=== PATIENT | female | born 1950 | race Caucasian/White ===

== ENCOUNTER 2020-07-19 10:38 | Emergency (ER) | payer MEDICARE, SELFPAY ==
--- NOTE | ~2020-07-19 | XR_ITS ---
EXAMINATION: XR chest 2V DATE: 07/19/2020 10:59 INDICATION: Cough. Shortness of breath. TECHNIQUE: Frontal and lateral views of the chest were obtained. COMPARISON: None. FINDINGS: There are mild airspace opacities in the mid and lower lung zones. No pleural effusion or p neumothorax. The heart size is normal. There are bilateral breast implants. IMPRESSION: 1. Mild airspace opacities in the mid and lower lung zones, consistent with atelectasis or less likel y pneumonia. Reviewed, dictated and finalized at location A. E MAN IMPRESSION: 1. Mild airspace opacities in the mid and lower lung zones, consistent with ate lectasis or less likely pneumonia.
[2020-07-19 10:46] VITALS: BP 154/91; PULSE 88; RESP 20; TEMP 36.6; O2SAT 95
--- NOTE | 2020-07-19 10:56 | ED.URI ---
HPI - URI/Sore Throat General Chief Complaint: Upper Respiratory Infection Stated Complaint: cough/sob Time Seen by Provider: 07/19/20 11:01 Source: patient and RN notes reviewed Mode of arrival: ambulatory Limitations: no limitations History of Present Illness HPI Narrative: 70 year old female who presents to [facility] with complaints of shortness of breath and cough for the past 3 weeks with no improvement after taking 2 rounds of oral antibiotics. Patient states that she feels short of breath all the time and especially with exertion. Patient also states that she has had nasal congestion and drainage but denies any know fevers chills or sweats. Patient states no change in taste or smell, denies any GI symptoms, or acute fatigue, states rare outing masked to grocery store every 2 weeks with no known exposure to COVID or any family member ill. MD elicited complaint: cough, rhinorrhea, nasal congestion and other (nasal drainage and shortness of breath) Onset (ago): week(s) (3) Consistency: constant Severity: moderate Description of mucous: clear Able to tolerate fluids by mouth: Yes Exacerbating factors: exertion Relieving factors: nothing Associated symptoms: rhinorrhea, cough and shortness of breath Treatments prior to arrival: antibiotics and other (anti) Related Data Home Medications Medication Instructions Recorded Confirmed citalopram mg 07/19/20 Allergies Allergy/AdvReac Type Severity Reaction Status Date / Time Penicillins Allergy Unknown Verified 11/10/08 15:36 Review of Systems Review of Systems: Narrative: CONSTITUTIONAL: Denies fever, chills, or sweats. EYES: Denies visual changes, redness, or discharge. ENT: positive rhinorrhea, congestion,no sore throat, or otalgia. CARDIOVASCULAR: Denies chest pain, palpitations, or edema. RESPIRATORY: Positive cough or dyspnea. GASTROINTESTINAL: Denies abdominal pain, nausea, vomiting, or diarrhea. GENITOURINARY: Denies dysuria or hematuria. SKIN: Denies rash or itching. MUSCULOSKELETAL: Denies back pain, joint pain, or myalgia. NEUROLOGIC: Denies headache, numbness, or weakness. PSYCHIATRIC: Positive history of anxiety or depression. All systems reviewed & are unremarkable except as noted in HPI and below PMFSH Past Medical History Medical History (Updated 07/19/20 @ 16:49 by Mayte Perez NP) Depression Diverticulitis Surgical History Surgical History (Updated 07/19/20 @ 16:53 by Mayte Perez NP) H/O total hysterectomy History of colon resection History of tonsillectomy Hx of breast implants, bilateral Social History Social History (Updated 07/19/20 @ 14:16 by Mayte Perez NP) Smoking status: Never smoker Alcohol intake: never Substance use: never Living arrangements: with family Gender identity (if verbalized by the patient): Female Comments At time of signature, agree with nursing past medical, surgical, social history. There is no relevant family history pertinent to the presenting complaint Exam Narrative: Exam Narrative: GENERAL: Well-appearing, well-nourished, and in no acute distress. HEAD: Normocephalic, atraumatic. EYES: PERRLA and EOMI. ENT: Nares red with clear rhinorrhea no epistaxis. Mucous membranes moist.TM's normal with good light reflex, throat pink with no swelling or exudates no tonsil enlargement NECK: Supple.no lymphadenopathy CHEST: Scattered wheezing throughout lung fuller on auscultation. No acute respiratory distress.SAO2 95% on room air admits to dyspnea with minimal exertion. HEART: Regular rate and rhythm. No murmur heard. Normal peripheral pulses. ABDOMEN: Soft, nontender, nondistended, normal active bowel sounds. EXTREMITIES: Normal range of motion. No edema. SKIN: Warm, dry, no rash. NEURO: No focal deficits. Alert and oriented x3. Course Vital Signs Vital signs: Vital Signs Temperature 36.6 C 07/19/20 10:46 Pulse Rate 88 07/19/20 10:46 Respiratory Rate 20 07/19/20 10:46
== END 2020-07-19 11:35 | disposition home or self-care (01) ==
PROVIDERS: Emergency Provider Registered Nurse; PCP Family Medicine
DX: J40 Bronchitis, not specified as acute or chronic (principal); F32.9 Major depressive disorder, single episode, unspecified
CPT/HCPCS: 71046; 99213; C9803; G0463; U0003

== ENCOUNTER 2020-07-19 11:36 | Outpatient (NON) | payer MEDICARE, SELFPAY ==
[2020-07-19 23:30] LABS: SARS-CoV-2 RNA PCR Negative
== END 2020-07-19 11:37 ==
PROVIDERS: PCP Family Medicine; Visit Provider Registered Nurse
DX: R05 Cough (principal); J40 Bronchitis, not specified as acute or chronic; Z20.828 Contact with and (suspected) exposure to other viral communicable diseases
CPT/HCPCS: 87635; C9803; U0003

== ENCOUNTER 2020-09-05 12:06 | Observation (INO) | payer MEDICARE, SELFPAY ==
[2020-09-05] VITALS (24 sets, daily range): BP systolic 131–164; BP diastolic 67–119; PULSE 98–121; RESP 16–36; TEMP 36–36.4; O2SAT 93–100
--- NOTE | ~2020-09-05 | XR_ITS ---
XR chest 1V portable 09/05/2020 13:19 Indication: Shortness of breath Procedure: AP portable chest Comparison: 07/19/2020 Findings: Borderline heart size. Mild pulmonary vascular congestion. No focal air space disease, pulm onary edema, pleural effusion or suspected pneumothorax. Impression: 1: No acute cardiopulmonary disease. Reviewed, dictated and finalized at location B. [employer] Impression: 1: No acute cardiopulmonary disease.
--- NOTE | ~2020-09-05 | CT_ITS ---
EXAMINATION: CT diagnostic chest wo con DATE: 09/06/2020 13:23 INDICATION: Shortness of breath TECHNIQUE: Computed tomography (CT) of the chest was performed without intravenous contrast. The dose -length product (DLP) was 177.64 mGy-cm. Automated exposure control and iterative reconstruction tech nique were employed. COMPARISON: None FINDINGS: There is mild emphysema. There is atelectasis of the lingula and right middle lobe. There i s no pleural effusion or pneumothorax. No focal airspace opacities are identified. No pathologically enlarged thoracic lymph nodes are identified. The heart size is normal. Bilateral breast implants are noted. There is an 11 mm cyst of the liver dome. Mild thoracic spine is noted. IMPRESSION: 1. Mild emphysema. Reviewed, dictated and finalized at location A. [employer] IMPRESSION: 1. Mild emphysema.
--- NOTE | 2020-09-05 12:32 | ECG_ITS ---
Measurements Intervals Benjamin Rate: 107 P: 104 WY: 185 QRS: 2 QRSD: 85 T: 79 QT: 348 QTc: 465 Interpretive Statements SINUS TACHYCARDIA LEFT VENTRICULAR HYPERTROPHY AND ST-T CHANGE ANTEROSEPTAL INFARCT, AGE INDETERMINATE BASELINE ARTIFACT- II, III, AVL, AVF, V5 ABNORMAL ECG Electronically Signed On 09-05-2020 14:10:09 ICU RN by Devan Dumont D.O.
--- NOTE | 2020-09-05 12:34 | ED.URI ---
HPI - URI/Sore Throat General Chief Complaint: Upper Respiratory Infection Stated Complaint: sob, cough Time Seen by Provider: 09/05/20 12:22 Source: patient Mode of arrival: ambulatory Limitations: no limitations History of Present Illness HPI Narrative: This patient is a 70 year year old female who presents for evaluation of worsening shortness of breath. She reports for the past 2 months she has been dealing with a cough and shortness of breath. She has been diagnosed with acute bronchitis, so she has been treated with multiple rounds of steroids and antibiotics. She completed her last course of steroids 2 weeks ago. Since the completion of medications , her shortness of breath has worsened. She unable to walk around her house without having to stop. She denies chest pain or fever. MD elicited complaint: cough Related Data Home Medications Medication Instructions Recorded Confirmed citalopram 40 mg PO ONCE 07/19/20 09/05/20 Allergies Allergy/AdvReac Type Severity Reaction Status Date / Time Penicillins Allergy Unknown Unknown Verified 09/05/20 12:16 Review of Systems Review of Systems: All systems reviewed & are unremarkable except as noted in HPI and below Constitutional: Constitutional: Denies chills, Reports fatigue and Denies fever(s) Cardiovascular: Cardiovascular: Denies chest pain and Reports rapid heart rate Respiratory: Respiratory: Reports cough, Reports dyspnea and Reports wheezing Gastrointestinal: Gastrointestinal: Denies abdominal pain, Denies nausea and Denies vomiting PMFSH Past Medical History Medical History (Updated 09/05/20 @ 20:47 by Allegra Anand MD) Depression Diverticulitis Surgical History Surgical History (Updated 07/19/20 @ 16:53 by Mayte Perez NP) H/O total hysterectomy History of colon resection History of tonsillectomy Hx of breast implants, bilateral Social History Social History (Updated 07/19/20 @ 14:16 by Mayte Perez NP) Smoking status: Never smoker Alcohol intake: never Substance use: never Substance use type: does not use Gender identity (if verbalized by the patient): Female Sexual Orientation (if Verbalized by the Patient): Straight or Heterosexual Spiritual care concerns: No Exam Const: General: alert Orientation/consciousness: patient oriented x3 HENMT: Head: normocephalic and atraumatic Face and sinus: face symmetric Mouth: Yes Normal oral and palatal mucosa present, Yes lip normal, Yes oropharynx normal and Yes moist mucous membranes Throat: posterior oropharynx normal Eyes: EOM: EOMs intact bilaterally Resp: Effort & Inspection: normal respiratory effort Auscultation: wheezes expiratory wheezes Cardio: Rate: tachycardic Rhythm: regular rhythm Heart sounds: no murmurs GI: GI Palp: Yes Soft to palpation, No Tenderness to palpation present (GI) and No Guarding due to palpation present (GI) Auscultation: normal bowel sounds Skin: General skin exam: normal color Rashes: no rashes Neuro: General: patient oriented x3 and moves all extremities Extrem: General: no pedal edema Course Reevaluation(s) Reevaluation #1: Patient is still short of breath. She still has expiratory wheezing. I discussed with patient plan to admit and test for covid Date: 09/05/20 Time: 13:49 Consultations Consultation #1: I discussed case with Nae Mckenzie and she accepts to hospitalist service. Date: 09/05/20 Time: 13:53 Vital Signs Vital signs: Vital Signs Temperature 96.8 F L 09/05/20 12:12 Pulse Rate 110 H 09/05/20 12:12 Respiratory Rate 18 09/05/20 12:12 Blood Pressure 148/108 H 09/05/20 12:12 Pulse Oximetry 95 09/05/20 12:12 Temperature 96.8 F L 09/05/20 12:12 Pulse Rate 98 09/05/20 17:49 Respiratory Rate 20 09/05/20 17:49 Blood Pressure 146/103 H 09/05/20 15:34 Pulse Oximetry 95 09/05/20 17:49 MDM - URI/Sore Throat Lab Data Result diagrams: 09/05/20 12:4
[2020-09-05 12:51] LABS: Basophils Absolute Auto 0.1 K/mm3 (0.0-0.1); Basophils Percent Auto 0.8 % (0.2-1.2); Eosinophils Percent Auto 11.6 % (0-4.4); Hematocrit 44.5 % (37.0-47.0); Hemoglobin 15.8 g/dL (12.0-15.0); Immature Granulocyte Absolute 0.02 K/mm3 (0.00-0.031); Immature Granulocyte Percent A 0.2 % (0-0.5); Lymphocytes Absolute Auto 2.02 K/mm3 (0.9-3.2); Lymphocytes Percent Auto 23.1 % (18.3-44.2); Mean Corpuscular HGB Conc 35.5 g/dl (32-36); Mean Corpuscular Hemoglobin 31.9 pg (26-34); Mean Corpuscular Volume 89.9 fl (80-100); Mean Platelet Volume 9.1 fl (7.4-10.4); Monocytes Absolute Auto 0.7 K/mm3 (0.1-0.6); Monocytes Percent Auto 7.7 % (2.6-8.5); Neutrophils Absolute Auto 4.9 K/mm3 (1.3-6.7); Neutrophils Percent Auto 56.6 % (45.5-73.1); Platelet Count Result 346 k/mm3 (150-375); Red Blood Count 4.95 M/mm3 (4.2-5.4); White Blood Count 8.7 K/mm3 (4.5-10.0)
[2020-09-05] MEDS: ALBUTEROL SULFATE NEB 2.5 MG/0.5 ML INH 5 MG INHALATION (12:53)
[2020-09-05] MEDS: IPRATROPIUM BR 0.02% INH SOLN 0.5 MG/2.5 ML VIAL INHALATION (12:53)
[2020-09-05 12:58] LABS: Alveolar/Arterial O2 Gradient 42.5 mmHg; Base Excess ABG 2.8 mEq/l (+/-2.0); Carboxyhemoglobin 0.9 % THb (0-2.0); Fractional Inspired Oxygen 21 %; HCO3 ABG 26.5 mEq/l (22.0-26.0); Methemoglobin ABG 0.3 %THb (0-1.5); Oxygen Content ABG 20.9 %vol (16.0-22.0); Oxygen Saturation ABG 92.9 % (95.0-100.0); Oxyhemoglobin 92.6 % THb (90.0-100.0); PCO2 ABG 38.1 mmHg (35.0-45.0); PO2 ABG 61.6 mmHg (80.0-100.0); PO2 FiO2 Ratio Arterial Blood 2.93 %; Reduced Hemoglobin 6.2 %THb (0-5.0); Total Hemoglobin 16.1 g/dL (12.0-18.0); pH ABG 7.461 (7.350-7.450)
[2020-09-05 12:59] LABS: Device ROOM AIR; Modified Allen's Test Pass; Site Drawn LEFT RADIAL
[2020-09-05 13:00] LABS: INR 0.9; Prothrombin Time 12.5 Seconds (11.1-14.7)
[2020-09-05 13:01] LABS: Partial Thromboplastin Time 26.7 SECONDS (22.3-36.8)
[2020-09-05 13:03] LABS: Lactic Acid Reflex 1.2 mmol/L (0.7-2.1)
[2020-09-05 13:04] LABS: D Dimer 0.31 ug/mL (<0.48)
[2020-09-05 13:06] LABS: Alanine Aminotransferase 29 U/L (4-35); Albumin Level 4.7 g/dL (3.5-5.1); Alkaline Phosphatase 81 U/L (38-126); Anion Gap 6 mmol/L (8-16); Aspartate Amino Transferase 37 U/L (14-36); Blood Urea Nitrogen 7 mg/dL (7-17); CRP < 0.5 mg/dL (<1.0); Calcium 10.3 mg/dL (8.4-10.2); Carbon Dioxide 28 mmol/L (22-30); Chloride 98 mmol/L (98-107); Estimated CRCL calculation 66 ml/min; Estimated Glomerular Filt Rate > 60; Glucose 109 mg/dL (65-105); Sodium 132 mmol/L (137-145)
[2020-09-05 13:15] LABS: NT Pro B Type Natriuretic Pept 564 PG/ML (5-100); Troponin I < 0.012 ng/mL (0.000-0.034)
[2020-09-05] MEDS: methylPREDNISolone SOD SUCC 125 MG VIAL IV PUSH (13:31)
[2020-09-05] MEDS: ALBUTEROL SULFATE (*SP) AEROSOL 1 PUFF 6 PUFF INHALATION (15:39)
--- NOTE | 2020-09-05 15:51 | PC.NURSE ---
This patient, Anali Ford, was admitted to [facility] Room 313-01. Patient/family oriented to hospital policies and general routines including ID bracelet, bed and alarms, visiting hours, pain management, procedures, bathroom and other care routines, personal items, smoking policy, room service/diet, and visiting hours. Information on how to activate the Rapid Response Team has been discussed. Patient/Family are encouraged to report perceived risks to care and to ask questions if they do not understand what they are told or what they should do.
[2020-09-05] MEDS: SODIUM CHLORIDE 0.9% IV 1,000 ML 125 ML IV CONT (17:31)
[2020-09-05] MEDS: methylPREDNISolone SOD SUCC 125 MG VIAL 60 MG IV PUSH (17:32)
--- NOTE | 2020-09-05 19:00 | PM.IMHP ---
H&P: HPI History of Present Illness Date/Time: 09/05/20 19:00 Chief Complaint: Cough and shortness of breath. Narrative: This is a pleasant 70-year-old female with ulcerative colitis, depression, and anxiety who presented to the emergency department earlier today from home for evaluation of cough and shortness of breath. This has been an ongoing issue since the end of May 2020 and she has been on 2 rounds of antibiotics for presumed bronchitis since that time. More recently she was prescribed a 12 day prednisone taper by her primary care provider and she was given inhaler, and reports that she felt better however her symptoms returned after she stopped the prednisone. The cough is mainly dry and is constant, but occasionally she will cough up a small amount of yellow sputum in the mornings. She is short of breath with minimal activity and can even feel short of breath when sitting down. This causes her a lot of anxiety which in turn causes her to feel more short of breath. She is also not sleeping well ?because I can hear the wheezing into my ears.? Because of her symptoms she is getting depressed, wondering if she will ever started to feel better. She is a lifelong nonsmoker and denies chemical exposure, sick contacts, recent travel, change in living conditions, mold in the home, etc. No orthopnea, PND, or lower extremity edema. She denies dysphagia, concerns for aspiration, and GERD symptoms. She has no history of asthma, COPD, or heart disease. No history of vocal cord dysfunction. Review of Systems Review of Systems: Narrative: Twelve systems were reviewed with pertinent positives and negatives as per HPI. No fever, chills, or sweats. No sinus congestion, rhinorrhea, otalgia, or odynophagia. No known exposure to those positive for COVID-19. Frequent loose stools related to ulcerative colitis. Except as documented, all other systems were reviewed and are negative. [facility] Past Medical History Medical History (Updated 09/05/20 @ 21:39 by Nae Mckenzie PA-C) Anxiety Depression Diverticulitis Ulcerative colitis Surgical History Surgical History (Updated 09/05/20 @ 21:33 by Nae Mckenzie PA-C) History of bladder suspension procedure History of breast augmentation History of colon resection Partial colectomy related to ulcerative colitis. History of hysterectomy History of tonsillectomy Family History Family History (Updated 09/05/20 @ 21:33 by Nae Mckenzie PA-C) Other Hypertension Social History Social History (Updated 09/05/20 @ 21:34 by Nae Mckenzie PA-C) Social History: Surrogate decision maker: Reyes Ford, . Code status: Full code. Smoking status: Never smoker Alcohol intake: never Substance use: never Additional living arrangements comments: Resides in [place] with her . Additional occupation/education comments: Homemaker. Gender identity (if verbalized by the patient): Female Sexual Orientation (if Verbalized by the Patient): Straight or Heterosexual Spiritual care concerns: No Meds Home Medications and Allergies Home Medications Medication Instructions Recorded Confirmed Type albuterol sulfate 2 puff INHALATION QID PRN #8.5 g 07/19/20 09/05/20 Rx azithromycin [Zithromax] See Rx Instructions .ROUTE 07/19/20 09/05/20 Rx .COMPLEX #6 tablet citalopram 40 mg PO ONCE 07/19/20 09/05/20 History prednisone 10 mg PO DAILY #21 tablet 07/19/20 09/05/20 Rx Allergies Allergy/AdvReac Type Severity Reaction Status Date / Time Penicillins Allergy Unknown Unknown Verified 09/05/20 12:16 Vital Signs Vital Signs - 24 hr 09/05/20 12:12 09/05/20 12:21 09/05/20 12:23 Temperature 96.8 F L Pulse Rate 110 H 112 H 112 H Respiratory Rate 18 36 H 19 Blood Pressure 148/108 H 164/100 H Pulse Oximetry 95 95 09/05/20 12:30 09/05/20 12:31 09/05/20 12:45 Temperature Pulse Rate 108 H 107 H 105 H Respiratory Rate 22 H 19
[2020-09-05 23:24] LABS: SARS-CoV-2 RNA PCR Negative
[2020-09-06] VITALS: BP 109/87; PULSE 104; RESP 16; TEMP 36.2; O2SAT 93
[2020-09-06] MEDS: ACETAMINOPHEN 325 MG TABLET 650 MG PO ×4 (03:11→16:50)
[2020-09-06 04:00] VITALS: BP 119/80; PULSE 105; RESP 20; TEMP 36.6; O2SAT 92
[2020-09-06 06:50] LABS: Hematocrit 44.1 % (37.0-47.0); Hemoglobin 15.3 g/dL (12.0-15.0); Immature Platelet Fraction Pct 9.7 % (0.9-11.2); Mean Corpuscular HGB Conc 34.7 g/dl (32-36); Mean Corpuscular Hemoglobin 31.4 pg (26-34); Mean Corpuscular Volume 90.6 fl (80-100); Red Blood Count 4.87 M/mm3 (4.2-5.4); Red Cell Distribution Width 14.3 % (11.5-14.5); White Blood Count 13.1 K/mm3 (4.5-10.0)
[2020-09-06 07:03] LABS: Anion Gap 6 mmol/L (8-16); Blood Urea Nitrogen 13 mg/dL (7-17); Calcium 9.9 mg/dL (8.4-10.2); Carbon Dioxide 22 mmol/L (22-30); Chloride 105 mmol/L (98-107); Estimated CRCL calculation 66 ml/min; Estimated Glomerular Filt Rate > 60; Glucose 120 mg/dL (65-105); Potassium 4.8 mmol/L (3.4-5.0); Sodium 133 mmol/L (137-145)
[2020-09-06] MEDS: ALBUTEROL SULFATE (*SP) AEROSOL 1 PUFF 2 PUFF INHALATION ×4 (08:13→22:33)
[2020-09-06] MEDS: predniSONE 20 MG TABLET 40 MG PO (08:14)
--- NOTE | 2020-09-06 11:50 | PM.CNPUL ---
Assessment and Plan Assessment and plan (1) Acute bronchitis: Code(s): J20.9 - Acute bronchitis, unspecified Status: Acute Assessment and Plan: Patient has a 3 month history of cough, congestion, fatigue, shortness of breath that has intermittently responded partially responded to antibiotics and responded to a previous course of prednisone on 08/12/2020. Currently patient feels better after receiving steroids and bronchodilators. Patient carries a diagnosis of ulcerative colitis and I will order a CT scan of the chest without contrast to assess for any interstitial lung disease. Other possible etiologies include post viral cough, adult adult onset asthma, congestive heart failure. I will continue prednisone 40 p.o. q.day, Symbicort 160-4.52 puffs b.i.d. and albuterol at this time. I do not believe she needs any antibiotics currently. Patient is scheduled to have an echocardiogram. Will follow with you. History of Present Illness History of Present Illness Consult date: 09/06/20 Reason for consult: dyspnea and cough Chief complaint: Acute Bronchitis Narrative: New patient consult for cough and dyspnea Patient is a 70-year-old female with a history of ulcerative colitis, depression and anxiety.Patient has a history of yearly fall allergic symptoms treated with alcohol Mary-Potwin plus in the past years and her symptoms lani after about 2-3 weeks with the 1st freeze of the year. She states that she previously had no respiratory limitations in her daily activity and could walk at least 1 mi previously. In May of 2020 patient came down with her usual allergy symptoms including cough and she treated herself with Mary-Potwin but there was no improvement. Patient developed fatigue and called her doctor for cough and congestion. Patient was given the azithromycin for 5 days. At the end of 5 days patient felt 50% normal. Symptoms of cough congestion chest rattling and shortness of breath returned after about 2 weeks. Patient was given another course of antibiotics and got 50% better about 1 week later on 07/19 patient called her doctor with continued cough and congestion and went to an urgent care where she was COVID negative and diagnosed with a chest x-ray as having bronchitis. Patient was given another Z-Wilbur and and albuterol inhaler. The albuterol inhaler did help give her immediate relief for her shortness of breath. Patient finished these treatments for 5 days and again was 50% better. Symptoms returned 7 days later and she went to her primary care physician's office on August 12, 2020 and she was prescribed prednisone pill for 1 week. Patient states that After the prednisone she got 100% back to normal, the cough congestion were completely gone she had her usual energy and no dyspnea on exertion or shortness of breath. About 1 week later after the prednisone finish the cough returned with shortness of breath and chest rattling. Symptoms got worse and she presented to the emergency room on 09/05/20. Patient denies any sinus congestion or postnasal drip, patient denies any acid reflux symptoms, patient denies exertional or rest chest pain, patient denies hemoptysis, patient has unchanged 2 pillow orthopnea. In the emergency room patient was found to have a white blood cell count of 8.7 with 1% eosinophils, a BNP of 564, a D-dimer of 0.31 which is negative, and a chest x-ray that showed mild pulmonary vascular congestion with no pleural effusions or infiltrates. Patient was treated with prednisone 40 Symbicort inhaler and albuterol. I was consulted on 09/06/202009/06 patient is on room air with saturations 92-94%, she is in no respiratory distress, she states that she is 60% back to her baseline compared to yesterday. Patient is a never smoker. Patient does not vape. Patient does not smoke marijuana.Patient was exposed to secondhand smoke from her father but none since, patient does not use any drugs, patient has no
[2020-09-06] MEDS: ENOXAPARIN 40 MG/0.4 ML SYRINGE SUB-Q (12:44)
[2020-09-06 14:00] VITALS: BP 121/68; PULSE 116; RESP 18; TEMP 36.1; O2SAT 93
[2020-09-06 14:29] VITALS: BMI 26.2
--- NOTE | 2020-09-06 16:03 | PM.IMPN ---
Progress Note: A&P Assessment and Plan (1) Shortness of breath: Code(s): R06.02 - Shortness of breath Status: Acute Assessment and Plan: 09/06/20 16:03 Patient is 70-year-old female has developed persistent cough and shortness of breath for last 3 months, patient has no history of smoking or secondhand smoking or exposure to any chemicals, patient's symptoms do improve somewhat with antibiotic and oral steroid, patient denies chest pain or palpitation, she denies any lower extremity edema, there is no family history of emphysema. Chest x-ray done in emergency depart does not show any cardiopulmonary disease, he was started the patient steroid and antibiotic as well as updraft, we have order cardiac echo, will consult all around gear machine operator further recommendation (2) Wheezing: Code(s): R06.2 - Wheezing Status: Acute Assessment and Plan: Patient may have developed adult onset asthma will monitor (3) Elevated blood pressure reading: Code(s): R03.0 - Elevated blood-pressure reading, without diagnosis of hypertension Status: Acute Assessment and Plan: Will monitor and plan (4) Hyponatremia: Code(s): E87.1 - Hypo-osmolality and hyponatremia Status: Acute Assessment and Plan: Possibly secondary to lung disease will monitor (5) Anxiety: Code(s): F41.9 - Anxiety disorder, unspecified Status: Inactive Assessment and Plan: Will continue home regimen (6) Depression: Code(s): F32.9 - Major depressive disorder, single episode, unspecified Status: Inactive Assessment and Plan: Will continue home regimen (7) Heart murmur: Code(s): R01.1 - Cardiac murmur, unspecified Status: Acute Assessment and Plan: Follow-up cardiac echo Additional Plan The patient presented today with over 2 months history of wheezing, cough, and shortness of breath. She noticed some improvement after completing a prednisone taper however symptoms returned thereafter. Given her ongoing issues I will ask the all around gear machine operator to see her in consultation for recommendations. For now I will continue with albuterol MDI q.6 hours and add Symbicort. She will also be started on p.o. prednisone, as the IV steroids have caused her to feel quite anxious. Cannot rule out upper airway etiology for her shortness of breath and wheezing given exam findings. Echocardiogram is also been ordered for evaluation as she does have a murmur. Her hemoglobin is slightly elevated, raising concern for possible mild, chronic hypoxia thus will obtain an ABG. No indication for antibiotics. Subjective Date/time seen: 09/06/20 16:03 Patient is 70-year-old female has developed persistent cough and shortness of breath for last 3 months, patient has no history of smoking or secondhand smoking or exposure to any chemicals, patient's symptoms do improve somewhat with antibiotic and oral steroid, patient denies chest pain or palpitation, she denies any lower extremity edema, there is no family history of emphysema. Chest x-ray done in emergency depart does not show any cardiopulmonary disease, he was started the patient steroid and antibiotic as well as updraft, we have order cardiac echo, will consult all around gear machine operator further recommendation Review of Systems Review of Systems: All systems reviewed & are unremarkable except as noted in HPI and below Exam Narrative: Exam Narrative: Patient is comfortable, NAD HEENT: eyes are clear and none icteric LUNGS: Bilateral fair air entry with harsh breath sound HEART: RR S1S2 ABD: BS+, Soft and nontender Lower extremities: no edema SKIN: nonjaundiced Neuro: grossly intact. Objective Data Vital Signs Vital Signs: Vital Signs - 24 hr 09/05/20 17:49 09/05/20 22:00 09/06/20 00:00 Temperature 97.6 F 97.1 F L Pulse Rate 98 121 H 104 H Respiratory Rate 20 18 16 Blood Pressure 131/67 109/87 Pulse Oximetry 95 94 93 09/06/20 04:00
[2020-09-06 20:00] VITALS: O2SAT 96
[2020-09-06] MEDS: CITALOPRAM HYDROBROMIDE 20 MG TABLET 40 MG PO (20:42)
--- NOTE | 2020-09-06 21:41 | ECHO_ITS ---
Patient Info Name: Anali Ford Age: 70 years : 1950 Gender: Female Ht: 65 in Wt: 149 lbs BSA: 1.77 m2 HR: 95 bpm BP: 109 / 87 mmHg Heart Rhythm: Sinus Rhythm Technical Quality: Good Exam Date: 09/06/2020 11:06 AM Exam Location: [facility] Pulmonary Patient Status: Outpatient Admit Date: 09/05/2020 Staff Ordering Physician: Nae Mckenzie PA-C Senior Ui Web Developer: Ruddy Adams RDCS, RT Attending Provider: Stevie Chatterjee MD Referring Physician: Magaly VILLANUEVA; Exam Type: CA echo doppler color flow Study Info Indications R01.1 - Cardiac murmur, unspecified Complete two-dimensional, color flow and Doppler transthoracic echocardiogram is performed. Strain analysis performed. Summary 1. Complete two-dimensional, color flow and Doppler transthoracic echocardiogram is performed. 2. The left ventricle has mild concentric hypertrophy, with moderate to severe hypertrophy of the septum particularly the subaortic septum which measures 1.8 cm in thickness. This is consistent with hypertrophic obstructive cardiomyopathy. There is prominent sub chordal systolic anterior motion of the mitral valve noted. The peak velocity through the left ventricular outflow tract is somewhat difficult to determine as it is similar to that of the mitral regurgitant velocity, but appears to be about 5.5 m/sec (6 M/SEC with Valsalva) or about 120 mm gradient, consistent with severe outflow tract obstruction. It is not a typical late peaking jet. 3. The left ventricle has hyperdynamic function, EF greater than 70%. The global longitudinal strain is -12% suggesting a degree of systolic dysfunction. Diastolic dysfunction is present. No focal wall motion abnormalities. Normal left ventricular size. 4. There is moderate mitral valve regurgitation. 5. Left atrial chamber dimension is mildly enlarged. 6. Normal sinus rhythm. 7. Consider follow-up with appeals reviewer veteran. Left Ventricle Left ventricular chamber dimension is normal. Left ventricular systolic function is hyperdynamic, estimated at >70%. There is moderate asymmetric septal increased left ventricular wall thickness. Left ventricular septal wall motion is normal. The left ventricular diastolic function is grade I diastolic dysfunction. Global longitudinal strain is moderately elevated at 12 %. Right Ventricle Right ventricular chamber dimension is normal. Right ventricular systolic function is normal. Left Atria Left atrial chamber dimension is mildly enlarged. Right Atria Right atrial chamber dimension is normal. Aortic Valve The aortic valve is trileaflet. There is no aortic valve sclerosis. There is no aortic valve stenosis. There is no aortic valve regurgitation. Pulmonic Valve The pulmonic valve is normal. There is no pulmonic valve stenosis. There is no pulmonic regurgitation. Mitral Valve The mitral valve has normal leaflets. There is no mitral valve stenosis. There is moderate mitral valve regurgitation. Tricuspid Valve The tricuspid valve leaflets are normal. There is no significant tricuspid valve stenosis. There is trace tricuspid valve regurgitation. No pulmonary hypertension, estimated pulmonary arterial systolic pressure is Empty. Pericardium/Pleural The pericardium appears normal. There is no pericardial effusion. Inferior Vena Cava Normal inferior vena cava with >50% collapse upon inspiration consistent with Empty right atrial pressure, 10 mmHg. Aorta The aortic root size at the sinu
[2020-09-06 21:54] VITALS: BP 121/71; PULSE 125; RESP 18; TEMP 36.7; O2SAT 96
[2020-09-07 05:47] VITALS: BP 143/82; PULSE 95; RESP 18; TEMP 36.6; O2SAT 100
[2020-09-07 06:26] LABS: Hemoglobin 13.5 g/dL (12.0-15.0); Mean Corpuscular HGB Conc 33.8 g/dl (32-36); Mean Corpuscular Hemoglobin 31.3 pg (26-34); Mean Corpuscular Volume 92.6 fl (80-100); Mean Platelet Volume 9.4 fl (7.4-10.4); Platelet Count Result 320 k/mm3 (150-375); Red Blood Count 4.32 M/mm3 (4.2-5.4); Red Cell Distribution Width 14.5 % (11.5-14.5); White Blood Count 13.5 K/mm3 (4.5-10.0)
[2020-09-07 06:46] LABS: Anion Gap 3 mmol/L (8-16); Blood Urea Nitrogen 15 mg/dL (7-17); Carbon Dioxide 29 mmol/L (22-30); Chloride 104 mmol/L (98-107); Estimated CRCL calculation 57 ml/min; Estimated Glomerular Filt Rate > 60; Glucose 90 mg/dL (65-105); Potassium 4.1 mmol/L (3.4-5.0); Sodium 136 mmol/L (137-145)
[2020-09-07 08:00] VITALS: O2SAT 98
[2020-09-07] MEDS: predniSONE 20 MG TABLET 40 MG PO (08:22)
[2020-09-07] MEDS: ENOXAPARIN 40 MG/0.4 ML SYRINGE SUB-Q (08:22)
[2020-09-07] MEDS: ALBUTEROL SULFATE (*SP) AEROSOL 1 PUFF 2 PUFF INHALATION ×2 (08:23→13:38)
--- NOTE | 2020-09-07 09:11 | PM.PNPUL ---
Progress Note: A&P Assessment and Plan (1) Acute bronchitis: Code(s): J20.9 - Acute bronchitis, unspecified Status: Acute Assessment and Plan: 09/06 Patient has a 3 month history of cough, congestion, fatigue, shortness of breath that has intermittently responded partially responded to antibiotics and responded to a previous course of prednisone on 08/12/2020. Currently patient feels better after receiving steroids and bronchodilators. Patient carries a diagnosis of ulcerative colitis and I will order a CT scan of the chest without contrast to assess for any interstitial lung disease. Other possible etiologies include post viral cough, adult adult onset asthma, congestive heart failure. I will continue prednisone 40 p.o. q.day, Symbicort 160-4.52 puffs b.i.d. and albuterol at this time. I do not believe she needs any antibiotics currently. Patient is scheduled to have an echocardiogram. 09/07 Patient is improved. Sats 96% on RA. CT chest without ulcerative colitis related interstitial lung disease, some mild centrilobular emphysema, no p neumonia, bronchectasis or pulmonary edema. From a pulmonary viewpoint I will treat this as acute excerbation of emphysema and she is ready for discharge from my perspective. I spoke with Dr. Robbins but not the patient regarding her echocardiogram findings which may also be contributing to her SOB. Discharge on: Prednisone 40 mg PO X 3 days, then decrease By 10 mg every 3 days to off after a total of 12 days. Symbicort 160-4.52 puffs p.o. b.i.d. Rescue albuterol 2 puffs q.4 hours p.r.n. Follow up with us in 4 weeks. Will need outpatient PFTs to assess lung volumes and function. Subjective Date/time seen: 09/07/20 09:11 Interval history: Patient is a 70-year-old female with a history of ulcerative colitis, depression and anxiety.Patient has a history of yearly fall allergic symptoms treated with alcohol Mary-Stanhope plus in the past years and her symptoms lani after about 2-3 weeks with the 1st freeze of the year. She states that she previously had no respiratory limitations in her daily activity and could walk at least 1 mi previously. In May of 2020 patient came down with her usual allergy symptoms including cough and she treated herself with Mary-Stanhope but there was no improvement. Patient developed fatigue and called her doctor for cough and congestion. Patient was given the azithromycin for 5 days. At the end of 5 days patient felt 50% normal. Symptoms of cough congestion chest rattling and shortness of breath returned after about 2 weeks. Patient was given another course of antibiotics and got 50% better about 1 week later on 07/19 patient called her doctor with continued cough and congestion and went to an urgent care where she was COVID negative and diagnosed with a chest x-ray as having bronchitis. Patient was given another Z-Wilbur and and albuterol inhaler. The albuterol inhaler did help give her immediate relief for her shortness of breath. Patient finished these treatments for 5 days and again was 50% better. Symptoms returned 7 days later and she went to her primary care physician's office on August 12, 2020 and she was prescribed prednisone pill for 1 week. Patient states that After the prednisone she got 100% back to normal, the cough congestion were completely gone she had her usual energy and no dyspnea on exertion or shortness of breath. About 1 week later after the prednisone finish the cough returned with shortness of breath and chest rattling. Symptoms got worse and she presented to the emergency room on 09/05/20. Patient denies any sinus congestion or postnasal drip, patient denies any acid reflux symptoms, patient denies exertional or rest chest pain, patient denies hemoptysis, patient has unchanged 2 pillow orthopnea. In the emergency room patient was found to have a white blood cell count of 8.7 with 1% eosinophils, a BNP of 564, a D-dimer of 0.31 which is negativ
--- NOTE | 2020-09-07 11:13 | PM.CNCAR ---
Assessment and Plan Assessment and plan (1) Hypertrophic obstructive cardiomyopathy: Code(s): I42.1 - Obstructive hypertrophic cardiomyopathy Status: Acute Assessment and Plan: Patient is without prior history of heart disease, heart murmur noted 1 year ago, found to have hypertrophic obstructive cardiomyopathy with a marked LVOT gradient. She now has a very prominent murmur although somewhat tachycardic and hyperdynamic which may be contributing since HOCM murmurs and outflow tract gradients can be dynamic. Her proBNP was a little elevated at 560, suggesting that the hypertrophic cardiomyopathy was causing some mild CHF on admission. Fortunately no family history of sudden cardiac and it does not appear the patient has had angina, arrhythmias etc. Discussed at length hypertrophic obstructive cardiomyopathy, associated mitral regurgitation, genetic inheritance etc.. This heart disease can span quite a large spectrum; some of my patients are in their 80s with no problems with it others have had significant troubles with arrhythmias, symptoms requiring surgery, etc. Recommended her children get screened and she have follow-up in our office. Also recommend we start metoprolol 25 mg b.i.d.; hopefully this will not aggravate her wheezing.. (2) Mitral regurgitation: Code(s): I34.0 - Nonrheumatic mitral (valve) insufficiency Status: Acute Assessment and Plan: Secondary to her HOCM. (3) Acute bronchitis: Code(s): J20.9 - Acute bronchitis, unspecified Status: Acute Assessment and Plan: Improved with treatment (4) Shortness of breath: Code(s): R06.02 - Shortness of breath Status: Acute Assessment and Plan: Clearly the patient has a pulmonary component to her symptoms with her wheezing etc. Some of her general CHAVEZ course may be related to her HOCM. History of Present Illness History of Present Illness Consult date/time: 09/07/20 11:13 Consult reason: Other (Abnormal echo) Reason For Visit: Acute Bronchitis Narrative: Anali Ford is a 70-year-old female whom I was asked to see at the request of the hospitalist for my advice and opinion regarding her abnormal echo, in consultation. Her echo yesterday showed hypertrophic obstructive cardiomyopathy with a high intraventricular gradient. The patient was admitted on September 05 with cough, wheezing and shortness of breath since May, failing outpatient treatment with inhaler and prednisone. She was seen by Pulmonary, and is improving with prednisone, Symbicort and albuterol, and is likely to be discharged today. She has a heart murmur, and her echo showed HOCM with a significant LVOT gradient. 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 In the fall she has allergies switch cause her nasal congestion shortness of breath, cough and wheezing. Since then she has had trouble with these symptoms, improving but never completely clearing up despite antibiotics, inhalers and steroids. She has had no problems with any chest discomfort, dizziness or syncope. She does feel racing heartbeats when she has coughing and wheezing. She has a family history of heart murmurs. No family history of sudden cardiac . Was 1st told she had a heart murmur 1 year ago; no history of any heart disease or heart testing. No hypertension diabetes or hyperlipidemia. Review of Systems Constitutional: Constitutional: Denies fatigue Eyes: Eyes: Reports no additional eye complaints Cardiovascular: Cardiovascular: Denies chest pain, Denies pedal edema, Denies leg edema, Denies lightheadedness and Reports palpitations (When she is wheezing) Respiratory: Respiratory: Reports chest congestion, Reports cough, Reports dyspnea, Reports dyspnea on exe
--- NOTE | 2020-09-07 13:01 | PM.DS ---
DS: Admitting Diagnosis Admitting Diagnosis Admitting Diagnosis: Chief Complaint: Cough and shortness of breath. DS: Discharge Diagnosis Discharge Diagnosis (1) Shortness of breath: Code(s): R06.02 - Shortness of breath Status: Acute Assessment and Plan: 09/06/20 16:03 Patient is 70-year-old female has developed persistent cough and shortness of breath for last 3 months, patient has no history of smoking or secondhand smoking or exposure to any chemicals, patient's symptoms do improve somewhat with antibiotic and oral steroid, patient denies chest pain or palpitation, she denies any lower extremity edema, there is no family history of emphysema. Chest x-ray done in emergency depart does not show any cardiopulmonary disease, he was started the patient steroid and antibiotic as well as updraft, we have order cardiac echo, will consult logistics engineering manager further recommendation (2) Wheezing: Code(s): R06.2 - Wheezing Status: Acute Assessment and Plan: Patient may have developed adult onset asthma will monitor (3) Elevated blood pressure reading: Code(s): R03.0 - Elevated blood-pressure reading, without diagnosis of hypertension Status: Acute Assessment and Plan: Will monitor and plan (4) Hyponatremia: Code(s): E87.1 - Hypo-osmolality and hyponatremia Status: Acute Assessment and Plan: Possibly secondary to lung disease will monitor (5) Anxiety: Code(s): F41.9 - Anxiety disorder, unspecified Status: Inactive Assessment and Plan: Will continue home regimen (6) Depression: Code(s): F32.9 - Major depressive disorder, single episode, unspecified Status: Inactive Assessment and Plan: Will continue home regimen (7) Heart murmur: Code(s): R01.1 - Cardiac murmur, unspecified Status: Acute Assessment and Plan: Follow-up cardiac echo DS: Summary Hospital Course Reason for hospitalization: Chief Complaint: Cough and shortness of breath. Narrative: This is a pleasant 70-year-old female with ulcerative colitis, depression, and anxiety who presented to the emergency department earlier today from home for evaluation of cough and shortness of breath. This has been an ongoing issue since the end of May 2020 and she has been on 2 rounds of antibiotics for presumed bronchitis since that time. More recently she was prescribed a 12 day prednisone taper by her primary care provider and she was given inhaler, and reports that she felt better however her symptoms returned after she stopped the prednisone. The cough is mainly dry and is constant, but occasionally she will cough up a small amount of yellow sputum in the mornings. She is short of breath with minimal activity and can even feel short of breath when sitting down. This causes her a lot of anxiety which in turn causes her to feel more short of breath. She is also not sleeping well ?because I can hear the wheezing into my ears.? Because of her symptoms she is getting depressed, wondering if she will ever started to feel better. She is a lifelong nonsmoker and denies chemical exposure, sick contacts, recent travel, change in living conditions, mold in the home, etc. No orthopnea, PND, or lower extremity edema. She denies dysphagia, concerns for aspiration, and GERD symptoms. She has no history of asthma, COPD, or heart disease. No history of vocal cord dysfunction. Hospital Course: Patient is 70-year-old female has developed persistent cough and shortness of breath for last 3 months, patient has no history of smoking or secondhand smoking or exposure to any chemicals, patient's symptoms do improve somewhat with antibiotic and oral steroid, patient denies chest pain or palpitation, she denies any lower extremity edema, there is no family history of emphysema. Chest x-ray done in emergency depart does not show any cardiopulmonary disease, he was started the patient steroid an
== END 2020-09-07 15:00 | disposition home or self-care (01) ==
LOC: ANHED 13:12 → ANH3MEDSUR 20:47
PROVIDERS: Physician Assistant; Admitting Provider Internal Medicine; Emergency Provider General Practice; PCP Family Medicine; Visit Provider Family Medicine
DX: J20.9 Acute bronchitis, unspecified (principal); R06.02 Shortness of breath; Z20.822 Contact with and (suspected) exposure to COVID-19; R03.0 Elevated blood-pressure reading, without diagnosis of hypertension; E87.1 Hypo-osmolality and hyponatremia; R01.1 Cardiac murmur, unspecified; R06.2 Wheezing; I42.1 Obstructive hypertrophic cardiomyopathy; I34.0 Nonrheumatic mitral (valve) insufficiency
CPT/HCPCS: 36415; 36600; 71045; 71250; 80048; 80053; 82375; 82805; 83050; 83605; 83880; 84443; 84484; 85025; 85027; 85055; 85380; 85610; 85730; 86140; 87040; 93005; 93306; 94640; 96372; 96374; 96376; 99285; A9270; C9803; G0378; J1650; J2930; J7030; J7512; U0003; U0005

== ENCOUNTER 2022-05-12 11:35 | Emergency (ER) | payer MEDICARE, SELFPAY ==
--- NOTE | ~2022-05-12 | XR_ITS ---
EXAMINATION: XR foot RT min 3V DATE: 05/12/2022 12:05 INDICATION: Right foot injury. TECHNIQUE: 4 views of right foot were obtained. COMPARISON: None. FINDINGS: There is a comminuted fracture of tip of lateral malleolus. There is mild hallux valgus. Th ere is severe osteoarthritis of first metatarsophalangeal joint and mild osteoarthritis of some of th e interphalangeal joints. There are masses at the skin at the dorsal forefoot and midfoot. IMPRESSION: 1. Comminuted fracture of tip of lateral malleolus. 2. Mild hallux valgus. 3. Polyarticular osteoarthritis. 4. Masses at the skin at the dorsal forefoot and midfoot. Correlate with physical exam. Reviewed, dictated and finalized at location A. IMPRESSION: 1. Comminuted fracture of tip of lateral malleolus. 2. Mild hallux valgus. 3. Polyarticular osteoarthritis. 4. Masses at the skin at the dorsal forefoot and midfoot. Correlate with physic al exam.
--- NOTE | ~2022-05-12 | CT_ITS ---
EXAMINATION: CT foot RT wo con DATE: 05/12/2022 13:49 INDICATION: Right foot injury and edema. TECHNIQUE: Computed tomography (CT) of the right foot was performed without intravenous contrast. Aut omated exposure control and iterative reconstruction technique were employed. The dose-length product was 440.55 mGy-cm. COMPARISON: Right foot and ankle radiographs 05/12/2022 FINDINGS: There is mild hallux valgus. There is a comminuted fracture of lateral malleolus with media l aspect of the fracture 1.9 cm distal to the level of the tibial plafond. The main distal fracture f ragment demonstrates near-anatomic alignment. There is a displaced chip fracture fragment component a t the attachment of anterior talofibular ligament. The talar dome is normal. There is mild osteoarthr itis of many of the midfoot joints and interphalangeal joints. There is a nondisplaced fracture of th e plantar medial base of first proximal phalanx. There is a nondisplaced fracture of the great toe ti bial sesamoid. There is severe osteoarthritis of first metatarsophalangeal joint. There is soft tissu e swelling of the foot. IMPRESSION: 1. Comminuted fracture of lateral malleolus. 2. Intra-articular fracture of base of first proximal phalanx. 3. Fracture of the great toe tibial sesamoid. 4. Polyarticular osteoarthritis. Reviewed, dictated and finalized at location A.
--- NOTE | ~2022-05-12 | XR_ITS ---
EXAMINATION: XR ankle RT min 3V DATE: 05/12/2022 12:05 INDICATION: Right ankle injury. TECHNIQUE: 4 views of right ankle were obtained. COMPARISON: None. FINDINGS: Bone alignment is normal. There is a comminuted fracture of tip of lateral malleolus with u p to 2 mm displacement. Medial and posterior malleoli are normal. Joint spaces are normal. There is l ateral ankle soft tissue swelling. IMPRESSION: 1. Comminuted fracture of tip of lateral malleolus. Reviewed, dictated and finalized at location A.
--- NOTE | ~2022-05-12 | US_ITS ---
EXAMINATION: US venous doppler LE RT DATE: 05/12/2022 16:05 INDICATION: right lower extremity edema, redness, recent fx . TECHNIQUE: Grayscale images without and with compression and Doppler images of the right lower extrem ity veins were obtained. COMPARISON: None FINDINGS: The right common femoral vein, profunda (deep) femoral vein, femoral vein, popliteal vein, peroneal v ein, posterior tibial veins, and greater saphenous vein are patent. IMPRESSION: 1. Patent right lower extremity veins. No evidence of deep venous thrombosis. Reviewed, dictated and finalized at location K.
--- NOTE | ~2022-05-12 | XR_ITS ---
EXAMINATION: XR knee RT min 4V DATE: 05/12/2022 12:36 INDICATION: Right knee pain. Injury. TECHNIQUE: 4 views of right knee were obtained. COMPARISON: None. FINDINGS: Bone alignment is normal. No fracture. There is moderate osteoarthritis of medial compartme nt and mild osteoarthritis of lateral and patellofemoral compartments. No knee joint effusion. IMPRESSION: 1. Moderate right knee osteoarthritis. Reviewed, dictated and finalized at location A.
[2022-05-12 11:38] VITALS: BP 149/95; PULSE 88; RESP 16; TEMP 36.2; O2SAT 99
--- NOTE | 2022-05-12 12:13 | ED.FALL ---
HPI - Fall General Chief Complaint: Fall <Evelyne Hurst PA-C - Last Filed: 05/12/22 17:59> Stated Complaint: right leg pain <CAROLINA Naqvi Last Filed: 05/12/22 17:59> Time Seen by Provider: 05/12/22 11:55 <Evelyne Hurst PA-C - Last Filed: 05/12/22 17:59> Source: patient <CAROLINA Naqvi Last Filed: 05/12/22 17:59> Mode of arrival: wheelchair <CAROLINA Naqvi Last Filed: 05/12/22 17:59> Limitations: no limitations <CAROLINA Naqvi Last Filed: 05/12/22 17:59> History of Present Illness HPI Narrative: This is a 72-year-old female that presents to the emergency department after a fall yesterday with right foot pain and swelling. Reports she tripped going down the last couple of steps. She twisted her ankle. Reports she has had swelling, bruising and pain in the foot since. She also started to develop blisters on the top of her foot which prompted her to be seen. Denies hitting her head, loss of consciousness, other injuries, or numbness. <CAROLINA Naqvi Last Filed: 05/12/22 17:59> Related Data Home Medications: Home Medications Medication Instructions Recorded Confirmed citalopram 40 mg tablet 40 mg PO DAILY 07/19/20 09/06/20 <CAROLINA Naqvi Last Filed: 05/12/22 17:59> Allergies/Adverse Reactions: Allergies Allergy/AdvReac Type Severity Reaction Status Date / Time Penicillins Allergy Unknown Unknown Verified 09/05/20 12:16 <CAROLINA Naqvi Last Filed: 05/12/22 17:59> Review of Systems Review of Systems: CONSTITUTIONAL: Denies fever MUSCULOSKELETAL: Reports joint pain, and myalgia. NEUROLOGIC: Denies numbness <CAROLINA Naqvi Last Filed: 05/12/22 17:59> All systems reviewed & are unremarkable except as noted in HPI and below <Evelyne Hurst PA-C - Last Filed: 05/12/22 17:59> [facility] Past Medical History Medical History: Medical History (Updated 05/12/22 @ 17:38 by Evelyne Hurst PA-C) Anxiety Depression Diverticulitis Hypertrophic obstructive cardiomyopathy Mitral regurgitation Ulcerative colitis <Evelyne Hurst PA-C - Last Filed: 05/12/22 17:59> Surgical History Surgical History: Surgical History (Updated 09/05/20 @ 21:33 by Nae Mckenzie PA-C) History of bladder suspension procedure History of breast augmentation History of colon resection Partial colectomy related to ulcerative colitis. History of hysterectomy History of tonsillectomy <Evelyne Hurst PA-C - Last Filed: 05/12/22 17:59> Family History Family History: Family History (Updated 09/07/20 @ 11:49 by Chioma Kevin MD) Mother Heart disease Heart murmur, scarring and possible old MIs, 90 years old Grandparent Heart disease Heart murmur kept grandfather out the service, at the age of 82, did not require any heart surgeries or had major heart trouble Grandparent Heart disease Grandmother had a heart murmur, did not require any surgery. in advanced age. <Evelyne Hurst PA-C - Last Filed: 05/12/22 17:59> Social History Social History: Social History (Updated 09/05/20 @ 21:34 by Nae Mckenzie PA-C) Social History: Surrogate decision maker: Reyes Ford, . Code status: Full code. Smoking status: Never smoker Alcohol intake: never Substance use: never Additional living arrangements comments: Resides in [place] with her . Additional occupation/education comments: Homemaker. Gender identity (if verbalized by the patient): Female Sexual Orientation (if Verbalized by the Patient): Straight or Heterosexual Spiritual care concerns: No <Evelyne Hurst PA-C - Last Filed: 05/12/22 17:59> Exam Narrative: GENERAL: Well-appearing, well-nourished, and in no acute distress. HEAD: Normocephalic, atraumatic. EYES: PERRLA and EOMI. ENT: Nares clear, no rhinorrhea or epistaxis. Mucous membranes m
[2022-05-12] MEDS: HYDROcodone/acetaminophen (*CRX) 5-325 MG TABLET 1 TAB PO (12:18)
[2022-05-12 12:55] LABS: Basophils Absolute Auto 0.1 K/mm3 (0.0-0.1); Basophils Percent Auto 1.1 % (0.2-1.2); Eosinophils Absolute Auto 1.5 K/mm3 (0-0.3); Eosinophils Percent Auto 18.8 % (0-4.4); Hematocrit 41.9 % (37.0-47.0); Hemoglobin 14.2 g/dL (12.0-15.0); Immature Granulocyte Absolute 0.02 K/mm3 (0.00-0.031); Immature Granulocyte Percent A 0.2 % (0-0.5); Lymphocytes Absolute Auto 2.19 K/mm3 (0.9-3.2); Lymphocytes Percent Auto 26.7 % (18.3-44.2); Mean Corpuscular HGB Conc 33.9 g/dl (32-36); Mean Corpuscular Hemoglobin 31.6 pg (26-34); Mean Corpuscular Volume 93.1 fl (80-100); Mean Platelet Volume 9.8 fl (7.4-10.4); Monocytes Absolute Auto 0.7 K/mm3 (0.1-0.6); Monocytes Percent Auto 8.7 % (2.6-8.5); Neutrophils Absolute Auto 3.6 K/mm3 (1.3-6.7); Neutrophils Percent Auto 44.5 % (45.5-73.1); Platelet Count Result 250 k/mm3 (150-375); Red Cell Distribution Width 13.6 % (11.5-14.5); White Blood Count 8.2 K/mm3 (4.5-10.0)
[2022-05-12 13:08] LABS: INR 0.9; Prothrombin Time 11.8 Seconds (11.1-14.7)
[2022-05-12 13:09] LABS: Partial Thromboplastin Time 24.8 SECONDS (22.3-36.8)
[2022-05-12 13:19] LABS: Anion Gap 10 mmol/L (8-16); Blood Urea Nitrogen 16 mg/dL (7-17); Calcium 9.4 mg/dL (8.4-10.2); Carbon Dioxide 25 mmol/L (22-30); Chloride 103 mmol/L (98-107); Estimated CRCL calculation 61 ml/min; Estimated Glomerular Filt Rate > 60; Glucose 99 mg/dL (65-110); Potassium 4.3 mmol/L (3.4-5.0); Sodium 138 mmol/L (137-145)
[2022-05-12 14:35] VITALS: BP 116/75; PULSE 69; RESP 18; O2SAT 95
[2022-05-12 18:05] VITALS: BP 138/85; PULSE 76; RESP 18; O2SAT 96
== END 2022-05-12 18:07 | disposition home or self-care (01) ==
PROVIDERS: Physician Assistant; Emergency Provider Emergency Medicine; PCP Family Medicine
DX: S82.61XA Displaced fracture of lateral malleolus of right fibula, initial encounter for closed fracture (principal); S92.411A Displaced fracture of proximal phalanx of right great toe, initial encounter for closed fracture; S92.811A Other fracture of right foot, initial encounter for closed fracture; M79.89 Other specified soft tissue disorders; X50.0XXA Overexertion from strenuous movement or load, initial encounter; I42.1 Obstructive hypertrophic cardiomyopathy; I34.0 Nonrheumatic mitral (valve) insufficiency; F41.9 Anxiety disorder, unspecified; F32.A Depression, unspecified; Z90.49 Acquired absence of other specified parts of digestive tract
CPT/HCPCS: 29515; 36415; 73564; 73610; 73630; 73700; 80048; 85025; 85610; 85730; 93971; 99284; A9270